=== PATIENT | female | born 1970 | race Caucasian/White ===

== ENCOUNTER → 2018-07-09 14:00 | Outpatient (CLI) | payer OTHER, SELFPAY | DX: Z23 Encounter for immunization (principal) | CPT/HCPCS: 90471; 90686 ==

== ENCOUNTER → 2018-08-13 09:23 | Outpatient (REF) | payer OTHER, SELFPAY ==
[2018-08-13 09:58] LABS: Cholesterol 209 mg/dL (140-199); Glucose Promotional 99 mg/dL (70-100); HDL Cholesterol 72 mg/dL (40-60); LDL Cholesterol Calculated 125 mg/dL (<100); Triglycerides 62 mg/dL (35-150)
== END ==
LOC: LAB 09:23
DX: Z13.1 Encounter for screening for diabetes mellitus (principal); Z13.220 Encounter for screening for lipoid disorders
CPT/HCPCS: 80061; 82947

== ENCOUNTER → 2019-02-18 09:09 | Outpatient (REF) | payer OTHER, SELFPAY ==
[2019-02-18 09:35] LABS: Cholesterol 228 mg/dL (140-199); Glucose Promotional 95 mg/dL (70-100); HDL Cholesterol 73 mg/dL (40-60); LDL Cholesterol Calculated 144 mg/dL (<100); Triglycerides 55 mg/dL (35-150)
== END ==
LOC: LAB 09:09
DX: Z13.1 Encounter for screening for diabetes mellitus (principal); Z13.220 Encounter for screening for lipoid disorders
CPT/HCPCS: 80061; 82947

== ENCOUNTER → 2019-07-24 12:52 | Outpatient (CLI) | payer OTHER, SELFPAY | DX: Z23 Encounter for immunization (principal) | CPT/HCPCS: 90471; 90686 ==

== ENCOUNTER → 2019-11-04 08:43 | Outpatient (CLI) | payer OTHER, SELFPAY ==
[2019-11-04 10:04] LABS: Cholesterol 266 mg/dL (140-199); Glucose Promotional 101 mg/dL (70-100); HDL Cholesterol 67 mg/dL (40-60); LDL Cholesterol Calculated 186 mg/dL (<100); Triglycerides 66 mg/dL (35-150)
== END ==
DX: Z13.9 Encounter for screening, unspecified (principal)
CPT/HCPCS: 80061; 82947

== ENCOUNTER → 2020-07-22 | Outpatient (CLI) | payer OTHER, SELFPAY | PROVIDERS: Referring Provider Internal Medicine; Visit Provider Internal Medicine | DX: Z23 Encounter for immunization (principal) | CPT/HCPCS: 90471; 90686 ==

== ENCOUNTER → 2020-10-27 17:00 | Outpatient (CLI) | payer OTHER, SELFPAY ==
[2020-10-27] MEDS: COVID-19 VACC(MODERNA-1)/PF 100 MCG/0.5 ML VIAL IM (17:09)
== END ==
PROVIDERS: Referring Provider Internal Medicine; Visit Provider Internal Medicine
DX: Z23 Encounter for immunization (principal)
CPT/HCPCS: 0011A; 91301

== ENCOUNTER → 2020-11-23 14:37 | Outpatient (CLI) | payer OTHER, SELFPAY ==
[2020-11-23] MEDS: COVID-19 VACC #2, MRNA(MOD) 100 MCG/0.5 ML VIAL IM (14:43)
== END ==
PROVIDERS: Visit Provider Internal Medicine
DX: Z23 Encounter for immunization (principal)
CPT/HCPCS: 0012A; 91301

== ENCOUNTER → 2021-06-13 08:21 | Outpatient (CLI) | payer OTHER, SELFPAY ==
[2021-06-13 09:07] LABS: Alanine Aminotransferase 18 IU/L (<35); Albumin 4.3 g/dL (3.5-5.0); Albumin Globulin Ratio 1.5 (1.0-2.8); Alkaline Phosphatase 70 U/L (38-126); Aspartate Aminotransferase 27 IU/L (14-36); BUN Creatinine Ratio 23.9 (6-22); Bilirubin Total 0.6 mg/dL (0.2-1.3); Blood Urea Nitrogen 16 mg/dL (7-17); Calcium 9.4 mg/dL (8.4-10.2); Carbon Dioxide 29 mmol/L (22-32); Chloride 105 mmol/L (98-107); Cholesterol 223 mg/dL (140-199); Estimated Glomerular Filt Rate > 60.0 mL/min (>60); Globulin 2.8 g/dL (1.7-4.1); Glucose 109 mg/dL (70-100); HDL Cholesterol 68 mg/dL (40-60); HEMOLYSIS < 15 (0-50); LDL Cholesterol Calculated 140 mg/dL (<100); Potassium 4.6 mmol/L (3.4-5.1); Sodium 138 mmol/L (137-145); Total Protein 7.1 g/dL (6.3-8.2); Triglycerides 77 mg/dL (35-150)
[2021-06-13 09:53] LABS: TSH w/ Reflex to FT4 0.11 uIU/mL (0.47-4.68)
[2021-06-13 10:21] LABS: Free T4, Direct Thyroxine 1.64 ng/dL (0.78-2.19)
== END ==
PROVIDERS: Referring Provider Nurse Practitioner Family; Visit Provider Nurse Practitioner Family
DX: E03.9 Hypothyroidism, unspecified (principal); E78.01 Familial hypercholesterolemia
CPT/HCPCS: 36415; 80053; 80061; 84439; 84443

== ENCOUNTER → 2021-07-28 10:56 | Outpatient (CLI) | payer OTHER, SELFPAY | PROVIDERS: Referring Provider Internal Medicine; Visit Provider Internal Medicine | DX: Z23 Encounter for immunization (principal) | CPT/HCPCS: 90471; 90686 ==

== ENCOUNTER → 2021-08-26 15:40 | Outpatient (CLI) | payer OTHER, SELFPAY ==
[2021-08-26] MEDS: COVID-19 VACC #3, MRNA(MOD) 50 MCG/0.25 ML VIAL IM (15:47)
== END ==
PROVIDERS: Visit Provider Internal Medicine
DX: Z23 Encounter for immunization (principal)
CPT/HCPCS: 0013A; 91301

== ENCOUNTER → 2022-05-26 16:28 | Outpatient (CLI) | payer OTHER, SELFPAY ==
[2022-05-26 18:15] LABS: Free T4, Direct Thyroxine 1.52 ng/dL (0.78-2.19)
[2022-05-26 18:29] LABS: Thyroid Stimulating Hormone 0.026 uIU/mL (0.47-4.68)
[2022-05-26 18:45] LABS: Vitamin B12 476 pg/mL (239-931)
[2022-06-08 17:36] LABS: Vitamin D 25 Hydroxy (D3) 44.2 ng/mL (30.0-100.0)
== END ==
PROVIDERS: PCP Nurse Practitioner Family; Referring Provider Nurse Practitioner Family; Visit Provider Nurse Practitioner Family
DX: E03.9 Hypothyroidism, unspecified (principal); R53.83 Other fatigue; R20.8 Other disturbances of skin sensation
CPT/HCPCS: 36415; 82306; 82607; 84439; 84443

== ENCOUNTER → 2022-07-21 11:18 | Outpatient (CLI) | payer OTHER, SELFPAY | PROVIDERS: PCP Nurse Practitioner Family; Referring Provider Internal Medicine; Visit Provider Internal Medicine | DX: Z23 Encounter for immunization (principal) | CPT/HCPCS: 90471; 90686 ==

== ENCOUNTER → 2023-07-26 14:07 | Outpatient (CLI) | payer OTHER, SELFPAY | PROVIDERS: PCP Nurse Practitioner Family; Referring Provider Family Medicine; Visit Provider Family Medicine | DX: Z23 Encounter for immunization (principal) | CPT/HCPCS: 90471; 90686 ==

== ENCOUNTER → 2024-08-01 19:17 | Outpatient (CLI) | payer OTHER, SELFPAY | PROVIDERS: PCP Nurse Practitioner Family; Referring Provider Internal Medicine; Visit Provider Internal Medicine | DX: Z23 Encounter for immunization (principal) | CPT/HCPCS: 90471; 90656 ==